=== PATIENT | female | born 1965 | race Caucasian/White ===

== ENCOUNTER → 2021-04-16 | Outpatient (CLI) | payer BC | LOC: HEART 5 15:04 | DX: R00.2 Palpitations (principal) ==

== ENCOUNTER → 2021-06-10 | Outpatient (CLI) | payer BC | LOC: KOH-I 06-03 15:30 | DX: F17.210 Nicotine dependence, cigarettes, uncomplicated (principal) | CPT/HCPCS: 71271 ==

== ENCOUNTER → 2021-06-18 | Outpatient (CLI) | payer BC | LOC: HEART 5 06-13 08:15 | DX: R07.9 Chest pain, unspecified (principal); R00.2 Palpitations ==

== ENCOUNTER → 2021-07-08 | Outpatient (CLI) | payer BC | LOC: HEART 5 08:33 | DX: R07.9 Chest pain, unspecified (principal); R00.2 Palpitations; I25.9 Chronic ischemic heart disease, unspecified | CPT/HCPCS: 78452; A9502 ==

== ENCOUNTER → 2021-07-22 | Outpatient (CLI) | payer BC ==
[~2021-07-22] MED LIST: ASPIRIN CHEWABL81 MG PO; EMGALITY120 MG/1 M SQ; ISOSORBIDE MONO30 MG PO; KENALOG CREAM 080 GM EXT; LOSARTAN-HCTZ1 EAC2 PO; NEURONTIN300 MG PO; NORVASC5 MG PO; OMEPRAZOLE20 M1 PO; OXYBUTYNIN CHLOR5 M1 PO; PHENERGAN 25 MG25 M1 PO; PROAIR DIGIHAL90 MCG INH; TRAZODONE HCL50 MG PO; UBRELVY100 MG PO; VITAMIN D3125 MCG PO; VOLTAREN ARTHRI20 GM TP; ZANAFLEX2 MG PO
== END ==
LOC: CATH 06:29
DX: I25.118 Atherosclerotic heart disease of native coronary artery with other forms of angina pectoris (principal); I10 Essential (primary) hypertension; E78.5 Hyperlipidemia, unspecified; F17.210 Nicotine dependence, cigarettes, uncomplicated; F41.9 Anxiety disorder, unspecified; K21.9 Gastro-esophageal reflux disease without esophagitis; Z88.1 Allergy status to other antibiotic agents; Z88.8 Allergy status to other drugs, medicaments and biological substances; Z79.82 Long term (current) use of aspirin; Z79.899 Other long term (current) drug therapy; Z20.822 Contact with and (suspected) exposure to COVID-19
CPT/HCPCS: 99152; 99153; C1769; C1887; C1894; J1644; J2250; J3010; J7030; Q9967

== ENCOUNTER → 2021-09-09 | Outpatient (CLI) | payer BC | LOC: CATH 09:58 | DX: R00.2 Palpitations (principal); R55 Syncope and collapse ==

== ENCOUNTER → 2021-12-16 | Outpatient (CLI) | payer BC | LOC: ECHO 10:36 | DX: I20.9 Angina pectoris, unspecified (principal); R00.2 Palpitations; I08.1 Rheumatic disorders of both mitral and tricuspid valves; I51.7 Cardiomegaly | CPT/HCPCS: ECHO; 93306 ==